=== PATIENT | female | born 1945 | race Caucasian/White ===

== ENCOUNTER 2025-01-04 17:59 | Emergency (ER) | payer MEDICARE, SELFPAY ==
[2025-01-04 18:00] VITALS: BP 109/65; PULSE 73; RESP 18; TEMP 37.2; O2SAT 98; BMI 25.2
--- NOTE | 2025-01-04 18:16 | RAD_ITS ---
PROCEDURE: KNEE 4 OR MORE VIEWS 01/04/2025 REASON FOR EXAM: INJURY TECHNIQUE: KNEE 4 OR MORE VIEWS COMPARISON: None. FINDINGS: No evidence of acute fracture or dislocation. Mild degenerative changes of the knee. No knee joint effusion. RAD/Knee 4 or More Views IMPRESSION: No acute osseous abnormalities. Reading Location: [place] [id number]
--- NOTE | 2025-01-04 18:16 | RAD_ITS ---
PROCEDURE: SHOULDER MIN 2 VIEWS 01/04/2025 REASON FOR EXAM: INJURY TECHNIQUE: SHOULDER MIN 2 VIEWS COMPARISON: None RAD/Shoulder min 2 Views IMPRESSION: No acute fracture or dislocations. Calcific tendinopathy suspected. Mild dege nerative changes of the left shoulder. Mild diffuse soft tissue edema. No radiographic foreign body. Visualized portions of the left lungs are clear. Reading Location: [id number]
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
[2025-01-04 19:33] VITALS: BP 111/61; PULSE 68; RESP 16; TEMP 36.7; O2SAT 97
== END 2025-01-04 19:34 | disposition home or self-care (01) ==
PROVIDERS: Emergency Provider Emergency Medicine; PCP Internal Medicine; Visit Provider Emergency Medicine
DX: S80.01XA Contusion of right knee, initial encounter (principal); S40.012A Contusion of left shoulder, initial encounter; S70.02XA Contusion of left hip, initial encounter; V49.40XA Driver injured in collision with unspecified motor vehicles in traffic accident, initial encounter; Y92.410 Unspecified street and highway as the place of occurrence of the external cause
CPT/HCPCS: 73030; 73564; 99282